=== PATIENT | male | born 1940 | race Caucasian/White ===

== ENCOUNTER 2017-06-03 00:07 | Day surgery (SDC) | payer MEDICARE, OTHER ==
[2017-06-03] VITALS (16 sets, daily range): BP systolic 86–135; BP diastolic 45–86; PULSE 74–80; RESP 6–19; O2SAT 97–100
[~2017-06-03] VITALS: Ht 180.3 cm; Wt 101.1 kg
[~2017-06-03 00:07] MED LIST: CARV25TA2 PO; EPLE25TA3 PO; FURO40TA4 PO; GABA-502 PO; GLIM2TAB2 PO; LISI40TA PO; LOPE1LIQ9 PO; OMEP20CA11 PO; POTA10TA14 PO; SIMV20TA4 PO; WARF4TAB6 PO
--- NOTE | 2017-06-03 06:00 | NUR ---
ADMISSION NOTE MALE PT ADMITTED FOR ABLATION. DISCUSSED PLAN OF CARE WITH PT AND . SEE ADMIT AND FLOW SHEET
[2017-06-03] MEDS ORDERED: 0.9% Sodium Chloride 1,000 ML IV SCH (07:00)
[2017-06-03] MEDS ORDERED: Vancomycin Inj 1,000 MG in IV Premix 1 EACH IV ONE (07:00)
[2017-06-03 07:11] LABS: BASOPHILS % (AUTO) 0.4 % (0-3); EOSINOPHILS % (AUTO) 6.9 % (0-5); MONOCYTES % (AUTO) 12.6 % (4-12); Mean Corpuscular Hemoglobin 28.5 pg (27.0-35.0); Mean Corpuscular Volume 84.7 fL (81-100); NEUTROPHILS % (AUTO) 51.3 % (40-74); Platelet Count 151 bil/L (150-400)
[2017-06-03] MEDS ORDERED: WARF2TAB7 PO (07:14)
[2017-06-03 07:20] LABS: INR 1.95 ratio
[2017-06-03] MEDS ORDERED: Heparin 10,000 Unit/1,000 mL NS Premix IV ONE (07:39)
[2017-06-03] MEDS ORDERED: Heparin 1,000 Unit/mL 10 mL Inj ONE (07:40)
[2017-06-03] MEDS ORDERED: 0.9% Sodium Chloride 1,000 ML ONE (07:40)
[2017-06-03] MEDS ORDERED: fentaNYL-PF 50 mCg/mL 2 mL Inj ONE ×2 (08:15→08:53)
[2017-06-03] MEDS ORDERED: Ondansetron 2 mg/mL 2 mL Inj IVPUSH PRN (09:45)
--- NOTE | 2017-06-03 09:46 | NUR ---
POST PROCEDURE NOTE RETURNED FROM TELEHEALTH COORDINATOR. SEE FLOW SHEET
--- NOTE | 2017-06-03 11:49 | NUR ---
TRANSFER NOTE TO [facility]. REPORT GIVEN
--- NOTE | 2017-06-03 12:46 | NUR ---
arrival Pt arrived from [facility]. Report obtained from RN. Pt A/O, denies pain. No SOB. R groin site is covered with tegaderm. No output from site. Dressing is CDI. Good cap refill on bilat toes. Pt to remain on bedrest until 1400 per orders. present at bedside. She brought CPAP from car for pt. Pt placed on cont pulse ox, 96% on RA. placed on tele, 100% V-paced at 80.
--- NOTE | 2017-06-03 14:13 | PROCED ---
[address] [address] PROCEDURE NOTE PATIENT: MARI LANCASTER : 1940 MR#: [id number] ADMIT: 06/03/2017 JOB ID: [id number] DATE OF SERVICE: 06/03/2017 PREOPERATIVE DIAGNOSIS(ES): 1. Chronic atrial fibrillation. 2. Severe nonischemic cardiomyopathy. 3. Biventricular ICD in place. 4. Suboptimal biventricular pacing. POSTOPERATIVE DIAGNOSIS(ES): 1. Chronic atrial fibrillation. 2. Severe nonischemic cardiomyopathy. 3. Biventricular ICD in place. 4. Suboptimal biventricular pacing. PROCEDURES PERFORMED: 1. Limited electrophysiology study with atrioventricular node ablation. 2. Periprocedural ICD programming and reprogramming. 3. Fluoroscopy. SURGEON: Jax Kraus M.D., electrophysiology attending. PROSTHETIC TECHNICIAN: [employer] . ANESTHESIA: Bolus dosing of Versed and fentanyl were utilized to an adequate level of sedation. INDICATION: The patient is a pleasant 76-year-old man with severe nonischemic cardiomyopathy and biventricular ICD in place in the setting of chronic atrial fibrillation. He has had suboptimal biventricular pacing due to rapidly conducted atrial fibrillation. After discussion of risks and benefits of AV junction ablation, he opted to proceed. PROCEDURAL DESCRIPTION: Following informed consent, the patient was taken to the EP laboratory in the fasting state where he was prepped and draped in the usual sterile fashion. The right inguinal region was infiltrated with 1% lidocaine. Using the modified Seldinger technique, an 8-Luxembourger sheath was inserted into the right femoral vein. The patient's ICD was interrogated preprocedurally and showed excellent sensing and impedances as well as thresholds on both RV and LV leads. He was programmed to VVI 40. Backup pacing and tachyarrhythmia detections were turned to off. A J curve irrigated ablation catheter was brought to the field and advanced into the region of the compact atrioventricular node. Ablation lesions were placed here until complete heart block was achieved. A 20 minute waiting period was undertaken during which complete heart block was confirmed. He does have an escape rhythm on occasion in the low 40s. His device was again tested showing excellent lead parameters on both RV and LV leads. He was reprogrammed with tachyarrhythmia detections to on and backup pacing to VVIR 80 beats per minute. The sheath and catheter were removed. Manual pressure was held for hemostasis. The patient was sent to the [facility] for monitoring and bedrest. COMPLICATIONS: None. BLOOD LOSS: Negligible. IMPRESSION: Successful AV junction ablation. PLAN: 1. Bedrest x4 hours. 2. Monitoring overnight. 3. Pacing to VVIR 80 beats per minute for one month to be decreased by 10 beats per minute per month until desired backup rate is achieved. ATTENDING STATEMENT: Jax Kraus M.D., electrophysiology attending, was present for and supervised/performed all aspects of this procedure.
--- NOTE | 2017-06-03 21:10 | NUR ---
off bedrest pt off bedrest earlier but hadn't been out of bed, up with one person assist, pt tolerating well tired easily. tele 100%paced rate 80s, pt up earlier and able to ambulate in to bathroom with 1pa to have BM.
[2017-06-04 03:38] VITALS: BP 116/72; PULSE 80; RESP 16; O2SAT 97
[2017-06-04 04:41] LABS: APPEARANCE,URINE CLEAR (CLEAR,HAZY); COLOR,URINE YELLOW (YELLOW); OCCULT BLOOD,URINE MODERATE (NEGATIVE)
--- NOTE | 2017-06-04 05:49 | NUR ---
tele pt s/p ablation 100% a-paced all night, pts right groin site soft non-tender no hematoma noted, op-site in place c/d/i.
[2017-06-04] MEDS ORDERED: Pantoprazole 40 mg ER24 Tablet PO SCH (06:30)
[2017-06-04 07:54] VITALS: BP 150/91; PULSE 80; RESP 22; O2SAT 98
--- NOTE | 2017-06-04 08:29 | PCM.DIMED ---
Discharge Instructions Date of Service Jun 04, 2017 Dates of Hospitalization Discharge Diagnosis Discharge Diagnosis Dilated Cardiomyopathy LV Dysfunction LBBB Chronic Atrial Fib Hypertension Diabetes Complete AV Block, s/p AV Node ablation Diet Discharge Diet: Low fat, Low Sodium, Heart Healthy, Diabetic Activity Discharge Activity: Other (To prevent infection, do not sit in a bath tub, hot tub or pool for 5 days. To prevent bleeding, do not lift or push more than 10 lbs for 5 days.) Patient Instructions Provider: Jax Kraus MD Follow-up in: 5 weeks (Appt. on Jul 04, 2017 at 11:45 (arrival time)) Steve Martini PA-C Jun 04, 2017 08:29
[2017-06-04] MEDS ORDERED: Lisinopril 40 Tablet PO SCH (08:30)
[2017-06-04] MEDS ORDERED: FURO40TA4 PO (08:33)
[2017-06-04] MEDS ORDERED: POTA10TA14 PO (08:33)
--- NOTE | 2017-06-04 09:57 | DIS ---
[address] [address] DISCHARGE SUMMARY PATIENT: MARI LANCASTER : 1940 MR#: [id number] ADMIT: 06/03/2017 JOB ID: [id number] DIS: REASON FOR ADMISSION: AV node ablation. CHIEF COMPLAINT: Exertional dyspnea and fatigue and some lightheadedness. BRIEF HISTORY: The patient is a pleasant 76-year-old man with a severe dilated cardiomyopathy, chronic atrial fibrillation with a sometimes rapid ventricular response, left bundle branch block, and a biventricular ICD in place. He had a low LV ejection fraction initially, but with biventricular pacing his EF improved to near normal. More recently though, it has decreased again. He has been receiving biventricular pacing only about 70% of the time due to the atrial fibrillation with conducted rhythm. His heart failure medications have been adjusted, but he continues to have worsening exertional dyspnea and fatigue with lightheadedness, but not syncope. Dr. Jax Kraus discussed the possibility of AV node ablation for both rate control and to allow nearly 100% biventricular pacing to improve heart function. The patient was admitted for that purpose. COURSE IN HOSPITAL: The patient was admitted to the [facility] and taken to the union laborer, where the AV node ablation procedure was performed successfully. Afterward his device was programmed to a biventricular pacing at 80 beats per minute. He was returned to the [facility] for recovery from sedation and then transferred up to the [facility] for overnight observation and telemetry monitoring. The telemetry showed continuous ventricular pacing and no occurrences of ventricular tachycardia. He felt well in the morning and there was no bleeding or bruising at the left femoral venous access site. He did not complain of chest pain, shortness of breath, or lightheadedness. The patient felt well for discharge home. DISPOSITION: The patient was discharged home in good condition with a followup appointment at the [facility] Cardiology office in one month. He was asked not to lift or pull or push more than 10 pounds to prevent bleeding and to prevent infection he was asked not to sit in the hot tub, bathtub, or pool for five days. He will take medications as prescribed and follow a diabetic, heart healthy, low-sodium diet. We discussed the general advice to heart failure patients to not intake more than 2 quarts of fluids daily and to not take in more than 2 g of sodium daily. While he has been limiting his sodium intake he has not been limiting fluid intake, but drinks "a lot of water daily." I discussed with him the cycle of taking in too much water, having edema, and taking diuretics to lose fluid. I advised him to measure his intake and limit to maximum of [address] he would not need as much diuretic and would not be as edematous and this all made good sense to him. I will reduce his furosemide today to 40 mg daily because of the high creatinine. DISCHARGE MEDICATIONS: 1. Carvedilol 37.5 mg b.i.d. 2. Eplerenone 25 mg daily. 3. Gabapentin 900 mg at bedtime. 4. Glimiperide 2 mg daily. 5. Lisinopril 40 mg daily. 6. Loperamide liquid 1 mg per 7.5 mL to take 1 mg daily. 7. Omeprazole 20 mg daily. 8. Simvastatin 20 mg at bedtime. 9. Warfarin 4 mg alternating with 2 mg daily as directed by his Anticoagulation Clinic. 10. Furosemide dose reduced from 80 mg daily to 40 mg daily. 11. Potassium chloride ER dose reduced from 10 mEq daily to 5 mEq daily. DISCHARGE DIAGNOSES: 1. Dilated cardiomyopathy. 2. Left ventricular dysfunction. 3. Left bundle branch block. 4. Chronic atrial fibrillation. 5. Hypertension. 6. Diabetes. 7. Complete heart block status post atrioventricular node ablation.
--- NOTE | 2017-06-04 10:02 | NUR ---
Discharge pt. to be dc'd this am. post av node ablation. Right groin site c/d/i; no drainage; soft, nontender, no s/sx hematoma; ppp. Tele a-paced 80's; denies cp or pressure; vss. A&Ox3; ambulating ind in room; steady on feet; denies dizziness with activity. Belongings with patient. Medications and discharge instructions reviewed with patient and ; verbalized understanding. No new medications; several medication dose changes, verbalized understanding. F/u appiontment made; phone number provided. PIV's dc'd; catheters intact. Addendum: 06/04/17 at 1008 by ALBER MIKE RN dc'd at 1008 am via w/c to private vehicle.
== END 2017-06-04 10:11 | disposition home or self-care (01) ==
LOC: SOUO 00:07 → PCC 11:52 → SOUO 06-04 10:11
PROVIDERS: ATTEND Internal Medicine Cardiovascular Disease
DX: I48.2 Chronic atrial fibrillation (principal); I44.7 Left bundle-branch block, unspecified; I42.0 Dilated cardiomyopathy; I44.2 Atrioventricular block, complete; I11.0 Hypertensive heart disease with heart failure; I50.1 Left ventricular failure, unspecified; E11.40 Type 2 diabetes mellitus with diabetic neuropathy, unspecified; E78.5 Hyperlipidemia, unspecified; G47.30 Sleep apnea, unspecified; Z95.810 Presence of automatic (implantable) cardiac defibrillator; Z79.01 Long term (current) use of anticoagulants; Z79.84 Long term (current) use of oral hypoglycemic drugs
CPT/HCPCS: 36415; 80048; 81000; 85025; 85610; 93005; 93650; 99152; 99153; C2630; J0131; J1644; J2250; J3010; J7030